=== PATIENT | female | born 1985 | race Caucasian/White ===

== ENCOUNTER → 2020-06-08 | Outpatient (CLI) | payer MEDICAID ==
[~2020-06-08] MED LIST: no meds per pt
== END | disposition home or self-care (01) ==
LOC: STAR 10:34
PROVIDERS: ATTEND Anesthesiology
DX: Z01.812 Encounter for preprocedural laboratory examination (principal); Z20.828 Contact with and (suspected) exposure to other viral communicable diseases
CPT/HCPCS: 36415; 87635

== ENCOUNTER 2020-06-13 10:24 | Day surgery (SDC) | payer MEDICAID ==
[~2020-06-13] VITALS: Ht 157.5 cm; Wt 108.2 kg
[2020-06-13] MEDS ORDERED: CHLORHEXIDINE 15 ML UDC ONE (10:50)
[2020-06-13 11:03] VITALS: BP 152/94
[2020-06-13] MEDS ORDERED: no meds per pt (11:11)
[2020-06-13 11:25] LABS: BASOPHILS % (AUTO) 1 % (0-1); EOSINOPHILS % (AUTO) 1 % (1-7); LYMPHOCYTES % (AUTO) 27 % (22-44); MD NO; MEAN CORPUSCULAR HEMOGLOBIN 27.9 pg (27.0-34.8); MEAN CORPUSCULAR HGB CONC 32.6 g/dL (32.4-35.8); MEAN PLATELET VOLUME 8.7 fL (7.4-10.4); MONOCYTES % (AUTO) 6 % (2-9); NEUTROPHILS % (AUTO) 66 % (42-75); PLATELET COUNT 263 x10^3/uL (130-400); RED CELL DISTRIBUTION WIDTH 13.2 % (9.6-15.2)
[2020-06-13] MEDS ORDERED: LACTATED RINGERS 1,000 ML IV SCH (11:30)
[2020-06-13] MEDS ORDERED: CHLORHEXIDINE 15 ML UDC MM ONE (11:30)
[2020-06-13] MEDS ORDERED: FENTANYL PF 250 MCG/5ML ONE (11:48)
[2020-06-13] MEDS ORDERED: MIDAZOLAM 1 MG/ML, 2ML ONE (11:48)
[2020-06-13] MEDS ORDERED: FENTANYL PF 100 MCG/2ML IV PRN (12:00)
[2020-06-13] MEDS ORDERED: ACETAMINOPHEN 325 MG TABLET PO PRN (12:00)
[2020-06-13] MEDS ORDERED: hydrALAzine 20 MG/ML, 1ML IV PRN (12:00)
[2020-06-13] MEDS ORDERED: MEPERIDINE/PF 25MG/0.5ML IVPush PRN (12:00)
[2020-06-13] MEDS ORDERED: HALOPERIDOL 5 MG/ML IV PRN (12:00)
[2020-06-13] MEDS ORDERED: HYDROmorphone 1 MG/ML, 1ML INJ IVPush PRN (12:00)
[2020-06-13] MEDS ORDERED: LABETALOL 5MG/ML, 20ML IV PRN (12:00)
[2020-06-13] MEDS ORDERED: PROMETHAZINE 25 MG/ML, 1ML IVPush PRN (12:00)
[2020-06-13] MEDS ORDERED: OXYcodone 5 MG/5 ML ORAL.SOL UDC PO PRN (12:00)
[2020-06-13] MEDS ORDERED: morphine SULFATE 10 MG/ML, 1ML IVPush PRN (12:00)
[2020-06-13] MEDS ORDERED: OXYTOCIN 10 UNITS/ML, 1ML ONE (12:01)
[2020-06-13] MEDS ORDERED: MISOPROSTOL 200 MCG TABLET ONE (12:01)
[2020-06-13] MEDS ORDERED: SILVER NITRATE STICK TP ONE (12:01)
[2020-06-13] MEDS ORDERED: METHYLERGONOVINE 0.2 MG/ML IM ONE (12:01)
[2020-06-13] MEDS ORDERED: KETOROLAC 30 MG/1 ML ONE (12:40)
[2020-06-13] MEDS ORDERED: CEFAZOLIN 1,000 MG ONE (12:40)
[2020-06-13] MEDS ORDERED: ONDANSETRON 2MG/ML, 2ML ONE (12:40)
[2020-06-13] MEDS ORDERED: PROPOFOL 10 MG/ML, 20ML ONE (12:40)
[2020-06-13] MEDS ORDERED: DEXAMETHASONE 4 MG/ML, 1ML ONE (12:40)
== END 2020-06-13 14:25 | disposition home or self-care (01) ==
LOC: OUT 10:24
PROVIDERS: ATTEND Obstetrics & Gynecology
DX: O02.0 Blighted ovum and nonhydatidiform mole (principal); Z79.899 Other long term (current) drug therapy; Z90.49 Acquired absence of other specified parts of digestive tract
CPT/HCPCS: 36415; 59820; 85025; 86850; 86870; 86900; 88305; J0690; J1100; J1885; J2250; J2405; J2704; J2790; J3010; J7120; J2210; J2590

== ENCOUNTER 2020-06-30 17:25 | Observation (INO) | payer MEDICAID ==
[~2020-06-30] VITALS: Ht 157.5 cm; Wt 112.0 kg
--- NOTE | 2020-06-30 17:30 | NUR ---
INITIAL PT CONTACT. PT PRESENTS TO THE ED C/O HEAVY VAGINAL BLEEDING THAT STARTED (3 DAYS AGO), LOTS OF BLOOD CLOTS PRESENT. PT STATES "THIS MOSTLY JUST HAPPENS AT NIGHT". WENT TO [facility] ER YEST BUT NO OBGYN THERE, DOESN'T HAVE APPT W OB TIL THURSDAY. HAVING A LOT OF CRAMPING/PAIN. D&C AT [facility] 2 WKS AGO FOLLOWING A MISCARRIAGE. +DIZZY. SATURATING MULT PADS/HR, PT STATES "10 PADS AN HOUR. I PUT TWO ON AT ONCE EARLIER TODAY AND IT WAS SATURATED IN 15-20 MINUTES". AT BEDSIDE. PT DENIES ANY NEEDS AT THIS TIME. CALL LIGHT AND PERSONAL BELONGINGS WITHIN REACH. CONTINUOUS PULSE OX IN PLACE. WILL CONTINUE TO MONITOR.
--- NOTE | 2020-06-30 18:00 | NUR ---
PT SITTING UPRIGHT ON GURNEY. NAD, VSS. PT DENIES ANY NEEDS AT THIS TIME. CALL LIGHT WITHIN REACH. ERP AT BEDSIDE.
--- NOTE | 2020-06-30 18:20 | NUR ---
PT UP TO BR, US TECH UNABLE TO RECEIVE PT SOON.
[2020-06-30] MEDS ORDERED: SODIUM CHLORIDE FLUSH 10ML SYR IVF ONE (18:30)
[2020-06-30 18:32] LABS: BASOPHILS % (AUTO) 1 % (0-1); EOSINOPHILS % (AUTO) 2 % (1-7); LYMPHOCYTES % (AUTO) 32 % (22-44); MEAN CORPUSCULAR HEMOGLOBIN 27.6 pg (27.0-34.8); MEAN PLATELET VOLUME 8.6 fL (7.4-10.4); MONOCYTES % (AUTO) 7 % (2-9); NEUTROPHILS % (AUTO) 58 % (42-75); PLATELET COUNT 252 x10^3/uL (130-400); RED BLOOD COUNT 4.11 x10^6/uL (3.82-5.3); RED CELL DISTRIBUTION WIDTH 13.4 % (9.6-15.2)
[2020-06-30 18:33] LABS: MD NO
[2020-06-30 18:41] LABS: ALBUMIN 3.2 g/dL (3.4-5.0); ANION GAP 7 mmol/L (5-15); CALCIUM 8.4 mg/dL (8.5-10.1); CHLORIDE 109 mmol/L (98-107); CREATININE 0.56 mg/dL (0.55-1.02)
--- NOTE | 2020-06-30 18:55 | NUR ---
BEDSIDE REPORT GIVEN TO HIMANSHU PADILLA
--- NOTE | 2020-06-30 18:55 | NUR ---
PT TO US
--- NOTE | 2020-06-30 19:07 | NUR ---
Patient returned from US. Denies any complaints at this time. VSS
[2020-06-30] MEDS ORDERED: RHOGAM FROM BLOOD BANK 1 NOTE EA IM/IV ONE (20:00)
[2020-06-30 20:52] VITALS: BP 147/86
--- NOTE | 2020-06-30 20:59 | NUR ---
Rho gram injection given IM in right buttock. Exp. 12/04/2022 Lot. [id number]
--- NOTE | 2020-06-30 21:08 | NUR ---
Patient states that she has gone thorugh 3 pads since being here in the ER, and states that she feels "gushes" whenever moving.
[2020-06-30 21:57] LABS: ALANINE AMINOTRANSFERASE 31 U/L (12-78); ALBUMIN 3.2 g/dL (3.4-5.0)
[2020-06-30 22:07] LABS: ALKALINE PHOSPHATASE 98 U/L (45-117); BILIRUBIN,TOTAL 0.3 mg/dL (0.2-1.0); TOTAL PROTEIN 7.1 g/dL (6.4-8.2)
[2020-06-30 22:17] LABS: BILIRUBIN, DIRECT < 0.1 mg/dL (0.1-0.2); BILIRUBIN,INDIRECT 0.2 mg/dL (0.0-2.0)
--- NOTE | 2020-06-30 22:47 | NUR ---
SCRAP PREPARER doc at bedside.
[2020-07-01] MEDS ORDERED: POTASSIUM CHLORIDE 20 MEQ in SODIUM CHLORIDE 0.45% 1,000 ML IV SCH (00:30)
[2020-07-01] MEDS ORDERED: IBUPROFEN 200 MG TABLET PO PRN (00:30)
[2020-07-01] MEDS ORDERED: ACETAMINOPHEN 325 MG TABLET PO PRN (00:30)
[2020-07-01] MEDS ORDERED: CYCL-259 PO (00:53)
[2020-07-01] MEDS ORDERED: IBUP-1222 PO (00:53)
[2020-07-01] MEDS ORDERED: FLUT9.9S NAS (00:53)
[2020-07-01 01:10] VITALS: BP 106/62
[2020-07-01 04:34] VITALS: BP 106/69
[2020-07-01 06:44] VITALS: BP 118/76
[2020-07-01 06:44] LABS: BASOPHILS % (AUTO) 1 % (0-1); EOSINOPHILS % (AUTO) 3 % (1-7); LYMPHOCYTES % (AUTO) 43 % (22-44); MEAN CORPUSCULAR HGB CONC 33.1 g/dL (32.4-35.8); MEAN PLATELET VOLUME 8.6 fL (7.4-10.4); MONOCYTES % (AUTO) 8 % (2-9); NEUTROPHILS % (AUTO) 46 % (42-75); PLATELET COUNT 235 x10^3/uL (130-400); RED BLOOD COUNT 3.67 x10^6/uL (3.82-5.3); RED CELL DISTRIBUTION WIDTH 13.4 % (9.6-15.2)
[2020-07-01 06:45] LABS: MD NO
[2020-07-01] MEDS ORDERED: MISOPROSTOL 200 MCG TABLET SL ONE (11:00)
[2020-07-01] MEDS ORDERED: METOPROLOL 1 MG/ML, 5ML IV PRN (12:00)
[2020-07-01] MEDS ORDERED: ALBUTEROL SULFATE 2.5 MG/3 ML NPPB PRN (12:00)
[2020-07-01] MEDS ORDERED: FENTANYL PF 100 MCG/2ML IV PRN (12:00)
[2020-07-01] MEDS ORDERED: OXYcodone 5 MG/5 ML ORAL.SOL UDC PO PRN ×2 (12:00→13:30)
[2020-07-01] MEDS ORDERED: HYDROcodone/APAP 7.5-325MG/15ML UDC PO PRN (12:00)
[2020-07-01] MEDS ORDERED: LABETALOL 5MG/ML, 20ML IV PRN (12:00)
[2020-07-01] MEDS ORDERED: PROMETHAZINE 25 MG/ML, 1ML IV PRN (12:00)
[2020-07-01] MEDS ORDERED: ONDANSETRON 2MG/ML, 2ML IVPush PRN ×2 (12:00→13:30)
[2020-07-01] MEDS ORDERED: METOCLOPRAMIDE 5 MG/ML, 2ML ONE (12:00)
[2020-07-01] MEDS ORDERED: hydrALAzine 20 MG/ML, 1ML IV PRN (12:00)
[2020-07-01] MEDS ORDERED: MEPERIDINE/PF 25MG/0.5ML IVPush PRN (12:00)
[2020-07-01] MEDS ORDERED: EPHEDRINE 50 MG/ML, 1ML IVPush PRN (12:00)
[2020-07-01] MEDS ORDERED: MIDAZOLAM 1 MG/ML, 2ML IV PRN (12:00)
[2020-07-01] MEDS ORDERED: HYDROmorphone 2 MG/ML, 1ML IVPush PRN (12:00)
[2020-07-01] MEDS ORDERED: DEXAMETHASONE 4 MG/ML, 1ML ONE (12:09)
[2020-07-01] MEDS ORDERED: ONDANSETRON 2MG/ML, 2ML ONE (12:09)
[2020-07-01] MEDS ORDERED: KETOROLAC 30 MG/1 ML ONE (12:09)
[2020-07-01] MEDS ORDERED: CEFAZOLIN 1,000 MG ONE (12:09)
[2020-07-01] MEDS ORDERED: OXYTOCIN 10 UNITS/ML, 1ML ONE (12:09)
[2020-07-01] MEDS ORDERED: FENTANYL PF 100 MCG/2ML ONE (12:09)
[2020-07-01] MEDS ORDERED: SODIUM BICARBONATE 1 MEQ/ML, 50ML VIAL ONE (12:09)
[2020-07-01] MEDS ORDERED: PHENYLEPHRINE 10 MG/ML ONE (12:09)
[2020-07-01] MEDS ORDERED: EPHEDRINE 50 MG/ML, 1ML ONE (12:09)
[2020-07-01] MEDS ORDERED: MIDAZOLAM 1 MG/ML, 2ML ONE (12:12)
[2020-07-01] MEDS ORDERED: LACTATED RINGERS 1,000 ML IV SCH (13:30)
[2020-07-01] MEDS ORDERED: OXYcodone/APAP 5/325MG TABLET PO PRN (13:30)
[2020-07-01] MEDS ORDERED: MISOPROSTOL 200 MCG TABLET ONE (13:44)
[2020-07-01 14:05] VITALS: BP 124/78
[2020-07-01] MEDS ORDERED: IBUPROFEN 600 MG TABLET PO SCH (16:00)
[2020-07-01 17:08] VITALS: BP 136/81
== END 2020-07-01 17:32 | disposition home or self-care (01) ==
LOC: ED 19:17 → INTOOBSV 07-01 00:29 → 4NE 07-01 00:29
PROVIDERS: ADMIT Obstetrics & Gynecology; ATTEND Obstetrics & Gynecology
DX: N93.9 Abnormal uterine and vaginal bleeding, unspecified (principal); Z20.828 Contact with and (suspected) exposure to other viral communicable diseases; N85.2 Hypertrophy of uterus; O02.0 Blighted ovum and nonhydatidiform mole; R93.89 Abnormal findings on diagnostic imaging of other specified body structures; Z98.891 History of uterine scar from previous surgery
CPT/HCPCS: 36415; 59812; 71045; 76830; 76856; 80048; 80076; 82040; 84443; 84702; 85025; 86850; 86870; 86900; 86922; 87635; 88305; 96360; 96361; 96372; 99285; G0378; J0690; J1100; J1885; J2250; J2370; J2405; J2590; J2790; J3010; J3480; 86923